=== PATIENT | female | born 1980 | race Caucasian/White ===

== ENCOUNTER 2020-05-15 15:53 | Emergency (ER) | payer OTHER, SELFPAY ==
[2020-05-15] MEDS ORDERED: Lorazepam 2 MG/ML VIAL ONE ×2 (16:10→17:49)
--- NOTE | 2020-05-15 16:31 | RAD ---
RADIOGRAPH CHEST 1 VIEW: DATE: 05/15/2020 HISTORY: 39-year-old female with dyspnea FINDINGS: There are no airspace densities, pulmonary edema, pneumothorax, or cardiomegaly. The lateral costophr enic angles are sharp. IMPRESSION: No acute cardiopulmonary findings.
[2020-05-15 16:37] LABS: #Basophils 0.1 thou/uL (0.0-0.2); #Lymphocytes 1.4 thou/uL (1.20-3.40); #Monocytes 0.6 thou/uL (0.11-0.59); #Neutrophils 6.2 thou/uL (1.40-6.50); %Basophils 0.8 % (0.0-1.0); %Eosinophils 0.4 % (0.0-10.0); %Lymphocytes 17.4 % (21.0-51.0); %Monocytes 6.7 % (0.0-10.0); %Neutrophils 74.8 % (42.0-75.0); Hemoglobin 14.9 g/dL (12.0-16.0); Mean Corpuscular HGB CONC 33.8 g/dL (32.0-36.0); Mean Corpuscular Hemoglobin 32.1 pg (27.0-31.0); Mean Corpuscular Volume 94.9 fL (78.0-98.0); Mean Platelet Volume 5.5 fL (7.4-10.4); Platelet Count 359 thou/uL (130-400); Red Blood Cell (RBC) Count 4.65 mill/uL (4.20-5.40); White Blood Cell (WBC) Count 8.3 thou/uL (4.8-10.8)
[2020-05-15] MEDS ORDERED: Sodium Chloride 0.9% 1,000 ML ONE (16:45)
[2020-05-15 16:52] LABS: ALT (SGPT) 16 U/L (8-55); AST (SGOT) 20 U/L (5-34); Albumin 4.4 g/dL (3.5-5.0); Alkaline Phosphatase 68 U/L (40-110); Anion Gap 18 mmol/L (10-20); BUN (Urea Nitrogen) 13 mg/dL (7.0-18.7); Bilirubin, Total 0.6 mg/dL (0.2-1.2); CK (CPK) 77 U/L (29-168); Calc. Creatinine Clearance 0 mL/min (70-130); Calcium 9.6 mg/dL (7.8-10.44); Carbon Dioxide 21 mmol/L (22-29); Chloride 104 mmol/L (98-107); Globulin 2.9 g/dL (2.4-3.5); Glucose 210 mg/dL (70-105); Protein, Total 7.3 g/dL (6.0-8.3); Sodium 139 mmol/L (136-145)
--- NOTE | 2020-05-15 19:01 | CT ---
CTA OF THE THORAX UTILIZING IV CONTRAST, PE PROTOCOL AND 3D REFORMATTED IMAGIN05/15/20 INDICATION: Tachycardia with difficulty breathing. COMPARISON: None. FINDINGS: The timing of the contrast bolus slightly limits evaluation of the segmental pulmonary vasculature. N o definite focal filling defect is evident within the limitations of the exam. No definite central p ulmonary embolus is evident. Heart and great vessels appear within normal limits. No enlarged lymph n odes are evident. There is a 3.5 mm ground glass pulmonary nodule in the right upper lobe. No additio nal focal pulmonary lesion is evident. No pleural effusion is evident. The visualized upper abdomen r eveals no definite acute abnormality. The visualized osseous structures reveal no definite acute os seous abnormality. There is mild spondylosis of the thoracic spine. IMPRESSION: 1. No definite central pulmonary embolus demonstrated. POS: BH
== END 2020-05-15 19:45 | disposition home or self-care (01) ==
LOC: NAV ERS 15:53
DX: R06.00 Dyspnea, unspecified (principal)
CPT/HCPCS: 36415; 71045; 71275; 80053; 82550; 83605; 83880; 84484; 85025; 85379; 93005; 94760; 96374; 96376; J2060; J7050